=== PATIENT | female | born 1980 | race Asian ===

== ENCOUNTER → 2017-05-13 | Day surgery (SDC) | payer OTHER ==
[~2017-05-13] VITALS: Ht 162.6 cm; Wt 76.2 kg
[~2017-05-13] MED LIST: MULTI-DAY VITA1 EACH PO; NORCO 5-325 TA1 EACH PO; VITAMIN D1000 UNIT PO; ZOFRAN ODT4 M1 SL
--- NOTE | 2017-05-13 10:46 | Operative Report ---
Operative/Inv Procedure Report Surgery Date: 05/13/17 Name of Procedure: Laparoscopic cholecystectomy Pre-Operative Diagnosis: Chronic cholecystitis Post-Operative Diagnosis: Same Estimated Blood Loss: scant Surgeon/Nurse Advisor: Clyde JJ,Cuate Rushing/Amy Ramirez Anesthesia: general endotracheal tube Operative/Procedure Note Note: After informed consent patient is brought to the operating room and laid supine. General anesthesia was obtained and her abdomen was prepped and draped. The skin above the umbilicus infiltrated with local anesthesia and a curvilinear incision made sharply. We came down through the subcutaneous tissues bluntly and grasped the fascia with Vicky's. A fasciotomy was created sharply and stay sutures placed. The peritoneum was entered sharply and a blunt Swartz port was placed. Pneumoperitoneum was achieved. 3, 5 mm ports were placed in the epigastrium and right upper quadrant after local anesthesia was instilled and under direct vision the camera. She's placed in reverse Trendelenburg and rotated towards the left. The gallbladder is identified. It was grasped at the dome and retracted towards the head. Infundibulum was then grasped. Adhesions to the undersurface were taken down with blunt and cautery dissection. We dissected both sides the triangle Calot peritoneal tissue with cautery. The artery was medial and its normal anatomic position. It was cauterized medially to allow it to be mobilized away from the duct. Monetta was cleared of areolar tissue with cautery. The arteries and duct were doubly ligated with clips. Gallbladder is removed from the fossa electrocautery. It was placed in Endo Catch bag and cinched up. Right upper quadrant was and suction irrigated normal saline. Hemostasis achieved with cautery. The ports were then removed and the gallbladder delivered and passed off the field. The fascia was closed with 0 Vicryl suture. Skin incisions closed with 4-0 Vicryl. Steri-Strips and sterile dressing applied. Sponge and needle counts are correct. Findings: Chronic cholecystitis with complete filling of the gallbladder tiny stones CC: Fox JJ,Dai Torres
== END ==
LOC: STS 03:47
DX: K80.10 Calculus of gallbladder with chronic cholecystitis without obstruction (principal)
CPT/HCPCS: 81025; 88304; C9399; J0131; J0690; J2250

== ENCOUNTER 2017-07-03 09:32 | Emergency (ER) | payer OTHER ==
[~2017-07-03] VITALS: Ht 162.6 cm; Wt 74.8 kg
--- NOTE | 2017-07-03 10:40 | ED MVC/FALL/TRAUMA COMPLAINT ---
History of Present Illness General Chief Complaint: Fall Stated Complaint: FALL KNEE AND BACK PAIN Source: patient Exam Limitations: no limitations Vital Signs & Intake/Output Vital Signs & Intake/Output ED Intake and Output 07/04 0000 07/03 1200 Intake Total Output Total Balance Patient 165 lb Weight Weight Reported by Patient Measurement Method Allergies Coded Allergies: budesonide (From SYMBICORT) (Severe, SWELLING TO LIPS 05/12/17) formoterol (From SYMBICORT) (Severe, SWELLING TO LIPS 05/12/17) Reconcile Medications Hydrocodone/Acetaminophen (Denair 5-325 Tablet) 5 MG-325 MG TABLET 1-2 TAB PO Q4-6 PRN PRN pain Ibuprofen 800 MG TABLET 1 TAB PO TID PRN PAIN Ondansetron (Zofran Odt) 4 MG TAB.RAPDIS 1 TAB SL TID PRN nausea Triage Note: PT STATES SHE FELL IN THE PARKING LOT ON WAY INTO WORK THIS AM ON SNOW OR ICE INJURING HER RIGHT KNEE AND BACK. PT STATES SHE TOOK MOTRIN FOR THE PAIN BUT STATES THE PAIN IS ALL OVER NOW. Triage Nurses Notes Reviewed? yes Onset: Abrupt Duration: hour(s): (3), constant, continues in ED, getting worse Timing: single episode today Severity: mild, moderate Severity Numbers: 7 Injuries/Fall Location: upper extremity, back, lower extremity Method of Injury: fall Loss of Consciousness: no loss of consciousness No Modifying Factors: none Associated Symptoms: muscle spasms LMP (ages 10-50): unknown : No Patient currently breastfeeds: No HPI: 37-year-old female with no past medical history per sensory evaluation after a fall. Patient states she was walking into work and at 7 AM when she slipped on ice and fell hit both of her knees. She denies any head strike or loss of consciousness. She was able to get up with help and walk. She walked into work but felt like she was gradually having worsening pain in her knees, left shoulder and lower back. She states the only area that hit the ground where her knees. She states everything started hurting later. She took ibuprofen with minimal improvement. She does not take blood thinners. No other injuries she rates pain as a 7 out of 10. Worse with movement. (Martin Iyer) Past History Travel History Traveled to [place] past 21 day No Medical History Any Pertinent Medical History? 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 No (Martin Iyer) Review of Systems Review of Systems Constitutional: Reports: no symptoms. Eyes: Reports: no symptoms. Ears, Nose, Throat, Mouth: Reports: no symptoms. Respiratory: Reports: no symptoms. Cardiovascular: Reports: no symptoms. Gastrointestinal/Abdominal: Reports: no symptoms. Genitourinary: Reports: no symptoms. Musculoskeletal: Reports: see HPI, back pain, joint pain, muscle pain, muscle stiffness. Skin: Reports: no symptoms. Neurological/Psychological: Reports: no symptoms. All Other Systems: Reviewed and Negative (Martin Iyer) Physical Exam Physical Exam General Appearance: well developed/nourished, no apparent distress, alert, awake Head: atraumatic, normal appearance Eyes: Bilateral: normal appearance, PERRL, EOMI, normal inspection. Ears, Nose, Throat, Mouth: hearing grossly normal, moist mucous membrane Neck: normal inspection, supple, full range of motion Respiratory: normal breath sounds, chest non-tender, no respiratory distress, lungs clear Cardiovascular: regular rate/rhythm, normal peripheral pulses Peripheral Pulses: 2+ radial (R), 2+ radial (L) Gastrointestinal: normal bowel sounds, soft, non-tender, no organomegaly Back: normal inspection, normal range of motion, no vertebral tenderness, lumbar para spinous muscles tender to palpation bilaterally. No bruising swelling or abrasions the midline tenderness Extremities: normal range of motion, full range of motion of the bilateral knees is intact. No abrasions or bruising. Pain to palpation of the bilateral patellas. No joint swelling. Neurovascular supply is intact. Painful palpation of the left anterior deltoid. No bruising swelling or abrasions. Full range of motion intact of the left shoulder. Neurologic/Psych: no motor/sensory deficits, awake, alert, oriented x 3, normal gait Skin: intact, normal color, warm/dry Core Measures ACS in differential dx? No CVA/TIA Diagnosis No Sepsis Present: No Sepsis Focused Exam Completed? No (Martin Iyer) Progress Differential Diagnosis: C/T/L spine injury, ext injury, fracture, contusion, sprain Plan of Care: Orders Procedure Date/time Status URINE 07/03 1039 Complete Laboratory Tests 07/03/17 1056: Urine Test NEGATIVE Patient seen and evaluated. She is here after a fall. She landed on both her knees. She was able to get up and ambulate afterwards. The pain was delayed. Patient was medicated with Tylenol here. We'll check x-rays of the knee is back and left shoulder. . Patient is feeling better after Tylenol and ibuprofen. She is able to ambulate. Advised rest ice elevation compression. Avoid heavy lifting bending physical activity. She was given a prescription for ibuprofen. Advised her to follow-up with her primary care doctor. Discussed return precautions patient appears closely while she agrees the plan. Diagnostic Imaging: Viewed by Me: Radiology Read. Discussed w/RAD: Radiology Read. Radiology Impression: PATIENT: JOSÉ MATAMOROS PRESENT AGE : 37 PATIENT ACCOUNT NO: [id number] : 76 LOCATION: [facility] ORDERING PHYSICIAN: Martin SWAIN SERVICE DATE: 07/03/17 EXAM TYPE: RAD - XRY- KNEE COMPLETE LEFT; XRY-KNEE COMPLETE RIGHT; XRY-LUMBOSACRAL SPINE AP & LAT; XRY -SHOULDER COMPLETE-LEFT EXAMINATION: XRY-KNEE COMPLETE LEFT, XRY-KNEE COMPLETE RIGHT, XRY-SHOULDER COMPLETE-LEFT, XRY-LUMBOSACRAL SPINE AP LAT CLINICAL INFORMATION: Status post fall with pain in both knees, left shoulder an lower spine. COMPARISON: None. TECHNIQUE: Left knee 4 views. Right knee 4 views. Left shoulder 4 views. AP and lateral lumbosacral spine. FINDINGS: LEFT KNEE: No fracture or other bony abnormality is seen. Joint spaces are maintained. No effusion is demonstrated. RIGHT KNEE: Normal. No fracture or other bony abnormality. No joint effusion. LEFT SHOULDER: Normal. No fracture or other bony abnormality demonstrated. Alignment of the glenohumeral and acromioclavicular joints is normal. No abnormality of the upper left chest is seen. LUMBOSACRAL SPINE: Evaluation is limited because of patient body habitus. Alignment is normal. No fracture or other acute bony abnormality is seen. There is mild multilevel spondylosis. Sacroiliac joints are unremarkable. IMPRESSION: 1. Unremarkable left knee. 2. Unremarkable right knee. 3. Unremarkable left shoulder. 4. Limited assessment of the lumbosacral spine with no acute abnormality demonstrated. Mild multilevel spondylosis. DICTATED BY: Denia French MD DATE/TIME DICTATED:07/03/171150 BRIDGE TEACHER:ROSE MARIE DATE/TIME TRANSCRIBED:07/03/171150 CONFIDENTIAL, DO NOT COPY WITHOUT APPROPRIATE AUTHORIZATION. <Electronically signed in Other Vendor System> SIGNED BY: Denia French MD 07/03/17 1200 (Martin Iyer) Departure Departure Disposition: HOME OR SELF CARE Condition: Stable Clinical Impression Primary Impression: Fall Qualifiers: Encounter type: initial encounter Qualified Code: W19.XXXA - Unspecified fall, initial encounter Referrals: Fox JJ,Dai Torres (PCP/Family) Additional Instructions: Rest, avoid heavy lifting bending or excessive physical activity. Apply ice for 15-20 minutes every few hours of her painful areas. Use ibuprofen 800 mg every 8 hours with food as needed for pain. Make a follow-up appointment with her primary care doctor this coming week. Monitor symptoms return with any concerns. Departure Forms: Customer Survey General Discharge Information Prescriptions: Current Visit Scripts Ibuprofen 1 TAB PO TID PRN PAIN #30 TAB (Martin Iyer) PA/CYBER FORENSIC SPECIALIST Co-Sign Statement Statement: ED Attending supervision documentation- [] I saw and evaluated the patient. I have also reviewed all the pertinent lab results and diagnostic results. I agree with the findings and the plan of care as documented in the PA's/CYBER FORENSIC SPECIALIST's documentation. [X] I have reviewed the ED Record and agree with the PA's/CYBER FORENSIC SPECIALIST's documentation. [] Additions or exceptions (if any) to the PAs/CYBER FORENSIC SPECIALIST's note and plan are summarized below: [] (Mariusz JJ,Cesar Daigle)
--- NOTE | 2017-07-03 12:00 | RADIOLOGY REPORT ---
EXAMINATION: XRY-KNEE COMPLETE LEFT, XRY-KNEE COMPLETE RIGHT, XRY-SHOULDER COMPLETE-LEFT, XRY-LUMBOSACRAL SPINE AP LAT CLINICAL INFORMATION: Status post fall with pain in both knees, left shoulder an lower spine. COMPARISON: None. TECHNIQUE: Left knee 4 views. Right knee 4 views. Left shoulder 4 views. AP and lateral lumbosacral spine. FINDINGS: LEFT KNEE: No fracture or other bony abnormality is seen. Joint spaces are maintained. No effusion is demonstrated. RIGHT KNEE: Normal. No fracture or other bony abnormality. No joint effusion. LEFT SHOULDER: Normal. No fracture or other bony abnormality demonstrated. Alignment of the glenohumeral and acromioclavicular joints is normal. No abnormality of the upper left chest is seen. LUMBOSACRAL SPINE: Evaluation is limited because of patient body habitus. Alignment is normal. No fracture or other acute bony abnormality is seen. There is mild multilevel spondylosis. Sacroiliac joints are unremarkable. IMPRESSION: 1. Unremarkable left knee. 2. Unremarkable right knee. 3. Unremarkable left shoulder. 4. Limited assessment of the lumbosacral spine with no acute abnormality demonstrated. Mild multilevel spondylosis.
[2017-07-03] MEDS ORDERED: IBUPROFEN800 M1 PO (12:14)
[2017-07-03 12:31] VITALS: BP 124/78
== END 2017-07-03 12:32 ==
LOC: ERH 09:32
DX: M25.561 Pain in right knee (principal); M25.562 Pain in left knee; M54.5 Low back pain; M25.512 Pain in left shoulder; W00.0XXA Fall on same level due to ice and snow, initial encounter; Y93.01 Activity, walking, marching and hiking; Y92.9 Unspecified place or not applicable
CPT/HCPCS: 72100; 73030-LT; 73562-LT; 73562-RT; 81025